=== PATIENT | male | born 1945 | race Caucasian/White ===

== ENCOUNTER 2017-05-26 10:46 | Inpatient (IN) | payer MEDICARE, OTHER ==
[~2017-05-26] VITALS: Ht 172.7 cm; Wt 82.3 kg
[~2017-05-26 10:46] MED LIST: ALLO300T PO; FINA5TAB4 PO; OMEP20CA9 PO; OXYB10TA PO; OXYC-302 PO; TAMS-11 PO
[2017-05-26 11:42] LABS: HEMATOCRIT 46.2 % (39.2-51.8); HEMOGLOBIN 15.7 g/dL (13.7-18.0); WHITE BLOOD COUNT 5.7 x10^3/uL (3.4-10)
[2017-05-26] MEDS ORDERED: SODIUM CHLORIDE FLUSH 10ML SYR IVF PRN (12:30)
[2017-05-26] MEDS ORDERED: ONDANSETRON 2MG/ML, 2ML IVPush PRN (13:30)
[2017-05-26] MEDS ORDERED: LABETALOL 5MG/ML, 20ML IVPush PRN (13:30)
[2017-05-26] MEDS ORDERED: ACETAMINOPHEN 325 MG TABLET PO PRN (13:30)
[2017-05-26] MEDS ORDERED: ONDANSETRON ODT 4 MG PO PRN (13:30)
[2017-05-26] MEDS ORDERED: TADA5TAB2 PO (14:08)
[2017-05-26] MEDS ORDERED: FINA5TAB4 PO (14:08)
[2017-05-26 14:12] VITALS: BP 144/89
[2017-05-26 16:18] VITALS: BP 137/85
[2017-05-26 20:00] VITALS: BP 121/70
[2017-05-26] MEDS: LEVETIRACETAM 500 MG TABLET PO SCH (21:03)
[2017-05-27 00:57] VITALS: BP 104/67
[2017-05-27 08:46] VITALS: BP 113/73
[2017-05-27] MEDS: LEVETIRACETAM 500 MG TABLET PO SCH (08:54)
[2017-05-27] MEDS ORDERED: FINA5TAB4 PO (14:27)
[2017-05-27] MEDS ORDERED: TADA5TAB2 PO (14:27)
[2017-05-27] MEDS ORDERED: ALLO300T PO (14:27)
[2017-05-27] MEDS ORDERED: FINASTERIDE 5 MG TABLET PO SCH (15:00)
[2017-05-28] MEDS ORDERED: ALLOPURINOL 300 MG TABLET PO SCH (09:00)
[2017-05-28] MEDS ORDERED: TEMPLATE NON-FORMULARY MED. (Tadalafil** (Cialis**) 5 MG) PO SCH (09:00)
== END 2017-05-27 16:19 | disposition home or self-care (01) | DRG 66 ==
LOC: ED 12:13 → EDIP 12:30 → 4WST 13:24 → DCLOUNGE 05-27 16:05
PROVIDERS: ADMIT Internal Medicine; ATTEND Internal Medicine
DX: I62.01 Nontraumatic acute subdural hemorrhage (principal); R47.01 Aphasia; I62.03 Nontraumatic chronic subdural hemorrhage; F12.90 Cannabis use, unspecified, uncomplicated; I10 Essential (primary) hypertension; I45.10 Unspecified right bundle-branch block; K21.9 Gastro-esophageal reflux disease without esophagitis; N40.0 Benign prostatic hyperplasia without lower urinary tract symptoms; M10.9 Gout, unspecified; X58.XXXA Exposure to other specified factors, initial encounter; Z83.3 Family history of diabetes mellitus; Z87.891 Personal history of nicotine dependence; Z86.73 Personal history of transient ischemic attack (TIA), and cerebral infarction without residual deficits; Y93.89 Activity, other specified; Y92.89 Other specified places as the place of occurrence of the external cause; Y99.8 Other external cause status; I60.8 Other nontraumatic subarachnoid hemorrhage
CPT/HCPCS: 36415; 70450; 70551; 80047; 85025; 85610; 85730; 93005; 99285

== ENCOUNTER → 2017-06-28 | Outpatient (CLI) | payer MEDICARE, OTHER ==
[~2017-06-28] MED LIST changes: +TADA5TAB2 PO
== END | disposition home or self-care (01) ==
LOC: CFH 10:32
PROVIDERS: ATTEND Family Medicine
DX: I62.02 Nontraumatic subacute subdural hemorrhage (principal)
CPT/HCPCS: 70450

== ENCOUNTER → 2017-10-25 | Outpatient (CLI) | payer MEDICARE, OTHER | LOC: CFH 13:18 | PROVIDERS: ATTEND Family Medicine | DX: I62.02 Nontraumatic subacute subdural hemorrhage (principal) | CPT/HCPCS: 70450 ==

== ENCOUNTER → 2018-05-01 | Outpatient (CLI) | payer MEDICARE, OTHER | END | disposition home or self-care (01) | LOC: RAD 09:22 | PROVIDERS: ATTEND Physician Assistant Surgical | DX: I62.03 Nontraumatic chronic subdural hemorrhage (principal) | CPT/HCPCS: 70450 ==

== ENCOUNTER 2018-12-16 12:41 | Emergency (ER) | payer MEDICARE, OTHER ==
[~2018-12-16] VITALS: Ht 172.7 cm; Wt 83.9 kg
[2018-12-16 12:59] VITALS: BP 135/78
--- NOTE | 2018-12-16 13:07 | NUR ---
PT ARRIVES TO ED WITH C/O OF GENERALIZED RASH THAT HAS STARTED POST MEDICATION REGIMEN. PT IS CONCERNED BECAUSE THE RASH HAS BEEN ADDRESSED WITH NO IMPROVEMENT. PT REPORTS THAT HE HAS USED CREAMS AND STEROIDS AND HAS NO RELEIF. PT CONNECTED TO MONITORS AND CALL LIGHT IN REACH. AWAITING FURTHER ORDERS. VSS
--- NOTE | 2018-12-16 13:47 | NUR ---
Patient/Caregiver given discharge instructions and they have confirmed that they understand the instructions. Patient ambulatory with steady gait.
== END 2018-12-16 13:49 | disposition home or self-care (01) ==
LOC: ED 13:46
DX: R21 Rash and other nonspecific skin eruption (principal); I10 Essential (primary) hypertension; Z86.73 Personal history of transient ischemic attack (TIA), and cerebral infarction without residual deficits
CPT/HCPCS: 99283